=== PATIENT | female | born 1995 | race African-American/Black ===

== ENCOUNTER → 2019-11-15 | Outpatient (CLI) | payer OTHER ==
--- NOTE | 2019-11-18 13:46 | NUR ---
Late entry due to time limitations on day this weight check took place. Event occurred on 11/15/2019 at 1540. Pt, Mary Alarcon, presents to clinic after her request, via telephone call, for a weight check of her infant son, Sameer Alvarado. She is accompanied by her mother, and another adult female who has a little older with her. Pt states she wants Sameer weighed because they had been to [facility] earlier today and that his weight was decreasing from from two days prior. Pt states Sameer was born at a hospital in [place] on 11/03/2021, that she was diagnosed with pre-eclampsia. Pt denies that Sameer was ever fed via gavage tube while in the hospital. She states at discharge she was advised to supplement with 2oz fortified breastmilk after he was offered the breast. Pt states he is starting to spit up more volume and frequency, and when he was seen at [facility] earlier today she was advised to change his formula to Alimentum because of the spitting. Pt is fortifying to 24 wilder per ounce. Discharge date and weight not discussed. Reported weights were: 6#2oz; @ [facility] on 11/13 2490gms; at [facility] on 11/15 2485 gms. At this weight check he weighs 5#6.8oz (2462 gms). At this weight check, noting his weight was lower than earlier this morning, pt was advised to discontinue direct , only provide fortified breastmilk by bottle, fortifying as ordered by the discharge plan and [facility] physician. Pt attempts feeding Sameer by bottle here, he seems to struggle with the bottle nipple and transfer. provides a hospital nipple for the bottle and is able to get Sameer to drink better, close to one ounce. Pt advised on chin support to help him compress and get more milk transfer. Because of time limitation of this LC, they did not finish the feeding in the LC office. Pt was advised to take the baby to the emergency room if spit up and difficult feedings continued, and to get a weight check earlier than planned for on 11/19/2019, via emergency room if needed. Also advised to follow up with this LC the following Monday by phone or email. Family verbalizes understanding and continues working [facility].
== END ==
LOC: LAC 15:29
DX: Z39.1 Encounter for care and examination of lactating mother (principal)